=== PATIENT | male | born 1935 | race Caucasian/White ===

== ENCOUNTER 2022-04-03 10:36 | Inpatient (IN) | payer MEDICARE ==
[~2022-04-03] VITALS: Ht 167.6 cm; Wt 63.6 kg
[2022-04-03 11:23] LABS: Basophils # (auto) 0 10 ^3/uL (0-0.2); Basophils % (auto) 0.5 % (0.0-2.0); Eosinophils # (auto) 0.1 10 ^3/uL (0-0.8); Eosinophils % (auto) 1.1 % (0.0-7.0); Hematocrit 36.6 % (41.0-53.0); Hemoglobin 11.9 g/dL (13.5-17.5); Lymphocytes # (auto) 1.4 10 ^3/uL (0.4-5.4); Lymphocytes % (auto) 19.7 % (10.0-50.0); Mean Corpuscular Hgb Conc. 32.5 g/dL (32.0-36.0); Monocytes # (auto) 0.5 10 ^3/uL (0-1.3); Monocytes % (auto) 7.5 % (0.0-12.0); Neutrophils % (auto) 71.2 % (37.0-80.0); Nucleated Red Blood Cells % 0.1 %; Red Blood Cells 4.41 10^6/uL (4.5-5.90); Red Cell Distribution Width 18.3 % (11.8-14.3)
[2022-04-03 11:31] LABS: Urine Bacteria NONE SEEN /hpf (None Seen); Urine Blood Negative /uL (Negative); Urine Hyaline Cast FEW /lpf (0 - 2); Urine Mucus FEW (None Seen); Urine Specific Gravity 1.024 (1.001-1.035); Urine WBC 5 /hpf (0 - 3)
[2022-04-03 11:40] LABS: INR 1.03 (0.9-1.15); Partial Thromboplastin Time 29.3 sec (24.6-33.4)
[2022-04-03 11:41] LABS: Albumin 3.2 g/dL (3.4-5.0); Calcium 8.9 mg/dL (8.5-10.1); Potassium 4.5 mmol/L (3.5-5.1)
[2022-04-03 11:45] LABS: Bilirubin, Total 1.4 mg/dL (0.2-1.0); Total Protein 6.6 g/dL (6.4-8.2)
[2022-04-03] MEDS ORDERED: ACETAMINOPHEN 325 MG TAB PO PRN (15:15)
[2022-04-03] MEDS ORDERED: DOCUSATE SOD 100 MG CAP PO PRN (15:15)
[2022-04-03] MEDS ORDERED: MORPHINE SULFATE INJ 2 MG/ml SYRG IV PRN (15:15)
[2022-04-03] MEDS ORDERED: NITROGLYCERIN 0.4 MG SL TAB SL PRN (15:15)
[2022-04-03] MEDS ORDERED: ONDANSETRON HCL 4 MG/2 ML VIAL IV PRN (15:15)
[2022-04-03] MEDS ORDERED: REMDESIVIR PER PHARMACY 0 ML IV SCH (15:15)
[2022-04-03 15:27] VITALS: BP 116/57
[2022-04-03] MEDS ORDERED: REMDESIVIR 200 MG in NS 210ml LOADING DOSE ADULT IV ONE (15:30)
[2022-04-03] MEDS: MULTIPLE VITAMINS W/ MINERALS TAB PO SCH (15:39)
[2022-04-03] MEDS: DexAMETHasone 4 MG TAB PO SCH (15:40)
[2022-04-03] MEDS: ENOXAPARIN SOD 40 MG/0.4 ML SYRINGE SC SCH (15:40)
[2022-04-03] MEDS: ALBUTEROL SULF HFA 90MCG INH 200DOSE IN SCH (22:00)
[2022-04-03 22:12] VITALS: BP 115/67
[2022-04-03] MEDS: SODIUM CHLOR 0.9% PF (SALINE LOCK) 10ML VIAL/SYR IV SCH (23:01)
[2022-04-03 23:23] VITALS: BP 115/67
[2022-04-04 04:57] VITALS: BP 134/19
[2022-04-04] MEDS: SODIUM CHLOR 0.9% PF (SALINE LOCK) 10ML VIAL/SYR IV SCH ×3 (05:42→22:23)
[2022-04-04] MEDS: ALBUTEROL SULF HFA 90MCG INH 200DOSE IN SCH ×3 (06:00→18:24)
[2022-04-04] MEDS: MULTIPLE VITAMINS W/ MINERALS TAB PO SCH (08:38)
[2022-04-04] MEDS: ENOXAPARIN SOD 40 MG/0.4 ML SYRINGE SC SCH (08:39)
[2022-04-04] MEDS: FAMOTIDINE 20 MG TAB PO SCH (08:39)
[2022-04-04] MEDS: DexAMETHasone 4 MG TAB PO SCH (08:39)
[2022-04-04 09:24] VITALS: BP 105/50
[2022-04-04 13:00] VITALS: BP 110/56
[2022-04-04 13:11] LABS: Albumin 3.2 g/dL (3.4-5.0); Potassium 4.4 mmol/L (3.5-5.1)
[2022-04-04 13:15] LABS: Total Protein 7.2 g/dL (6.4-8.2)
[2022-04-04] MEDS ORDERED: ASCORBIC ACID 500 MG TAB PO ONE (14:15)
[2022-04-04] MEDS ORDERED: AZITHROMYCIN 500MG/ 250ML 250 ML IV ONE (14:15)
[2022-04-04] MEDS ORDERED: CHOLECALCIFEROL (VITD3) 2,000 UNIT CAP/TAB PO ONE (14:15)
[2022-04-04] MEDS ORDERED: cefTRIAXone 1GM/50ML D5W 50 ML IV ONE (14:15)
[2022-04-04] MEDS ORDERED: ZINC SULFATE 220mg CAP or TAB PO ONE (14:15)
[2022-04-04] MEDS: REMDESIVIR 100mg 100 MG in SODIUM CHL 0.9% 230 ML IV SCH (16:03)
[2022-04-04 17:00] VITALS: BP 142/77
[2022-04-04 22:00] VITALS: BP 95/57
[2022-04-04] MEDS: ASCORBIC ACID 500 MG TAB PO SCH (22:23)
[2022-04-05] MEDS ORDERED: SACU1TAB PO (01:58)
[2022-04-05] MEDS ORDERED: NITR0.4S29 SL (01:58)
[2022-04-05] MEDS ORDERED: METO25TA93 PO (01:58)
[2022-04-05] MEDS ORDERED: CANA100T OR (01:58)
[2022-04-05] MEDS ORDERED: BENZ200C64 PO (01:58)
[2022-04-05] MEDS ORDERED: ATOR40TA52 PO (01:58)
[2022-04-05] MEDS ORDERED: MULT-1018 PO (01:58)
[2022-04-05] MEDS ORDERED: ASPI1TAB91 PO (01:58)
[2022-04-05 05:00] VITALS: BP 114/64
[2022-04-05] MEDS: SODIUM CHLOR 0.9% PF (SALINE LOCK) 10ML VIAL/SYR IV SCH ×3 (05:38→22:00)
[2022-04-05 05:48] LABS: Albumin 2.9 g/dL (3.4-5.0); BUN/Creatinine Ratio 26.1; Calcium 9.2 mg/dL (8.5-10.1); Potassium 4.6 mmol/L (3.5-5.1)
[2022-04-05 05:50] LABS: Bilirubin, Total 0.8 mg/dL (0.2-1.0); Total Protein 6.5 g/dL (6.4-8.2)
[2022-04-05] MEDS: ALBUTEROL SULF HFA 90MCG INH 200DOSE IN SCH ×3 (06:35→22:22)
[2022-04-05 08:00] VITALS: BP 108/53
[2022-04-05 09:00] VITALS: BP 108/53
[2022-04-05] MEDS: cefTRIAXone 1GM/50ML D5W 50 ML IV SCH (10:27)
[2022-04-05] MEDS: ZINC SULFATE 220mg CAP or TAB PO SCH (10:28)
[2022-04-05] MEDS: FAMOTIDINE 20 MG TAB PO SCH (10:28)
[2022-04-05] MEDS: ASCORBIC ACID 500 MG TAB PO SCH ×2 (10:28→22:00)
[2022-04-05] MEDS: CHOLECALCIFEROL (VITD3) 2,000 UNIT CAP/TAB PO SCH (10:28)
[2022-04-05] MEDS: ENOXAPARIN SOD 40 MG/0.4 ML SYRINGE SC SCH (10:28)
[2022-04-05] MEDS: MULTIPLE VITAMINS W/ MINERALS TAB PO SCH (10:28)
[2022-04-05] MEDS: DexAMETHasone 4 MG TAB PO SCH (10:28)
[2022-04-05] MEDS ORDERED: PANTOPRAZOLE 40 MG/10 ML VIAL INJ IV ONE (11:45)
[2022-04-05] MEDS: AZITHROMYCIN 500MG/ 250ML 250 ML IV SCH (12:54)
[2022-04-05 13:00] VITALS: BP_SYST 128; BP_SYST 130; BP_DIAS 70; BP_DIAS 90
[2022-04-05] MEDS: FUROSEMIDE 40 MG/4 ML VIAL IV SCH (13:32)
[2022-04-05] MEDS: REMDESIVIR 100mg 100 MG in SODIUM CHL 0.9% 230 ML IV SCH (15:53)
[2022-04-05 16:48] VITALS: BP 117/62
[2022-04-05 22:54] VITALS: BP 108/65
[2022-04-06 04:33] VITALS: BP 110/53
[2022-04-06] MEDS: SODIUM CHLOR 0.9% PF (SALINE LOCK) 10ML VIAL/SYR IV SCH (06:19)
[2022-04-06 06:26] LABS: Potassium 4.2 mmol/L (3.5-5.1)
[2022-04-06 06:42] LABS: BUN/Creatinine Ratio 31.3; Bilirubin, Total 0.9 mg/dL (0.2-1.0); Calcium 8.9 mg/dL (8.5-10.1); Total Protein 6.2 g/dL (6.4-8.2)
[2022-04-06] MEDS: ALBUTEROL SULF HFA 90MCG INH 200DOSE IN SCH ×2 (07:16→14:00)
[2022-04-06 08:00] VITALS: BP 138/79
[2022-04-06 09:00] VITALS: BP 126/63
[2022-04-06] MEDS: MULTIPLE VITAMINS W/ MINERALS TAB PO SCH (09:26)
[2022-04-06] MEDS: DexAMETHasone 4 MG TAB PO SCH (09:26)
[2022-04-06] MEDS: cefTRIAXone 1GM/50ML D5W 50 ML IV SCH (09:26)
[2022-04-06] MEDS: FUROSEMIDE 40 MG/4 ML VIAL IV SCH (09:26)
[2022-04-06] MEDS: ZINC SULFATE 220mg CAP or TAB PO SCH (09:26)
[2022-04-06] MEDS: ASCORBIC ACID 500 MG TAB PO SCH (09:26)
[2022-04-06] MEDS: CHOLECALCIFEROL (VITD3) 2,000 UNIT CAP/TAB PO SCH (09:27)
[2022-04-06] MEDS: ENOXAPARIN SOD 40 MG/0.4 ML SYRINGE SC SCH (09:27)
[2022-04-06] MEDS ORDERED: PANTOPRAZOLE 40 MG/10 ML VIAL INJ IV SCH (10:00)
[2022-04-06] MEDS ORDERED: FURO1TAB33 PO (10:57)
[2022-04-06] MEDS ORDERED: CHOL500035 PO (10:57)
[2022-04-06] MEDS ORDERED: ASCO500C49 PO (10:57)
[2022-04-06] MEDS ORDERED: AZIT500T66 PO (10:57)
[2022-04-06] MEDS ORDERED: POTA10TA51 PO (10:57)
[2022-04-06] MEDS ORDERED: CARV6.25 PO (10:57)
[2022-04-06] MEDS: AZITHROMYCIN 500MG/ 250ML 250 ML IV SCH (11:14)
[2022-04-06 13:01] VITALS: BP 138/79
== END 2022-04-06 13:43 | disposition hospice, home (50) | DRG 177 ==
LOC: ER 10:36 → TELE 15:01 → TELE-EAST 21:25
PROVIDERS: ADMIT Internal Medicine; ATTEND Family Medicine
PROC: XW033E5 Introduction of Remdesivir Anti-infective into Peripheral Vein, Percutaneous Approach, New Technology Group 5 (ICD-10-PCS; principal; 2022-04-03)
DX: U07.1 COVID-19 (principal); J12.82 Pneumonia due to coronavirus disease 2019; J96.01 Acute respiratory failure with hypoxia; I42.9 Cardiomyopathy, unspecified; E55.9 Vitamin D deficiency, unspecified; I50.9 Heart failure, unspecified; E11.22 Type 2 diabetes mellitus with diabetic chronic kidney disease; I48.91 Unspecified atrial fibrillation; H91.90 Unspecified hearing loss, unspecified ear; N18.9 Chronic kidney disease, unspecified; I25.2 Old myocardial infarction; Z95.1 Presence of aortocoronary bypass graft; Z88.6 Allergy status to analgesic agent; Z91.048 Other nonmedicinal substance allergy status; Z88.5 Allergy status to narcotic agent; Z88.2 Allergy status to sulfonamides; Z88.8 Allergy status to other drugs, medicaments and biological substances
CPT/HCPCS: 36415; 71045; 80053; 81001; 82306; 83880; 84484; 85025; 85379; 85610; 85652; 85730; 86141; 87426; 93005; 93306; 94640; 96365; 96366; C9113; G0378; J0696

== ENCOUNTER 2022-05-30 16:11 | Inpatient (IN) | payer MEDICARE, MEDICAID ==
[~2022-05-30] VITALS: Ht 172.7 cm; Wt 62.0 kg
[~2022-05-30 16:11] MED LIST: ASCO500C49 PO; ASPI1TAB91 PO; ATOR40TA52 PO; AZIT500T66 PO; BENZ200C64 PO; CANA100T OR; CARV6.25 PO; CHOL500035 PO; EMPA1TAB PO; FURO1TAB33 PO; MET25T PO; METO25TA93 PO; MULT-1018 PO; NITR0.4S29 SL; POTA-167 PO; POTA10TA51 PO; SACU1TAB PO
[2022-05-30 16:58] LABS: Basophils # (auto) 0 10 ^3/uL (0-0.2); Basophils % (auto) 0.6 % (0.0-2.0); Eosinophils # (auto) 0.1 10 ^3/uL (0-0.8); Eosinophils % (auto) 1.2 % (0.0-7.0); Hematocrit 38.8 % (41.0-53.0); Hemoglobin 12.7 g/dL (13.5-17.5); Lymphocytes # (auto) 1.5 10 ^3/uL (0.4-5.4); Lymphocytes % (auto) 20.1 % (10.0-50.0); Mean Corpuscular Hemoglobin 27.7 pg (28.0-32.0); Mean Corpuscular Hgb Conc. 32.7 g/dL (32.0-36.0); Mean Corpuscular Volume 84.7 fL (80.0-100.0); Monocytes % (auto) 12.5 % (0.0-12.0); Neutrophils % (auto) 65.6 % (37.0-80.0); Nucleated Red Blood Cells % 0.1 %; Red Blood Cells 4.59 10^6/uL (4.5-5.90); Red Cell Distribution Width 18.9 % (11.8-14.3); White Blood Cell 7.6 10^3/uL (4.4-10.8)
[2022-05-30 17:24] LABS: Albumin 3.3 g/dL (3.4-5.0); Calcium 10.2 mg/dL (8.5-10.1); Potassium 4.2 mmol/L (3.5-5.1)
[2022-05-30 17:26] LABS: BUN/Creatinine Ratio 51.2 (10.0-20.0)
[2022-05-30 17:39] LABS: Bilirubin, Total 1.3 mg/dL (0.2-1.0); Total Protein 6.9 g/dL (6.4-8.2)
[2022-05-30] MEDS ORDERED: ONDANSETRON HCL 4 MG/2 ML VIAL IV PRN (21:00)
[2022-05-30] MEDS ORDERED: ALBUTEROL SULF 2.5 MG/0.5ML(0.5%) NEB SOLN NEB PRN (21:00)
[2022-05-30] MEDS ORDERED: DEXTROSE (50%) 50ML SYRG IV PRN (21:00)
[2022-05-30] MEDS ORDERED: NITROGLYCERIN 0.4 MG SL TAB SL PRN (21:00)
[2022-05-30] MEDS ORDERED: MORPHINE SULFATE INJ 2 MG/ml SYRG IV PRN (21:00)
[2022-05-30] MEDS ORDERED: FUROSEMIDE 40 MG/4 ML VIAL IV ONE (21:00)
[2022-05-30 21:20] VITALS: BP 119/69
[2022-05-30] MEDS: ACCU-CHEK COMFORT CURVE STRIP VI SCH (21:24)
[2022-05-30] MEDS: InsuLIN REG 1unit/0.01ml Soln (100units/ml) SC SCH (21:24)
[2022-05-30] MEDS: METOPROLOL TARTRATE 25 MG TAB PO SCH (21:31)
[2022-05-30] MEDS: HEPARIN SODIUM (PORCINE) 5000 UNITS/ML 1ML VIAL SC SCH (21:31)
[2022-05-31 06:07] LABS: Basophils # (auto) 0.1 10 ^3/uL (0-0.2); Basophils % (auto) 0.9 % (0.0-2.0); Eosinophils # (auto) 0.1 10 ^3/uL (0-0.8); Eosinophils % (auto) 1.8 % (0.0-7.0); Hematocrit 36.1 % (41.0-53.0); Hemoglobin 12.7 g/dL (13.5-17.5); Lymphocytes # (auto) 1.6 10 ^3/uL (0.4-5.4); Mean Corpuscular Hemoglobin 29.6 pg (28.0-32.0); Mean Corpuscular Hgb Conc. 35.1 g/dL (32.0-36.0); Mean Corpuscular Volume 84.5 fL (80.0-100.0); Monocytes # (auto) 0.7 10 ^3/uL (0-1.3); Monocytes % (auto) 9.8 % (0.0-12.0); Neutrophils # (auto) 4.4 10 ^3/uL (1.6-8.6); Neutrophils % (auto) 64.5 % (37.0-80.0); Nucleated Red Blood Cells % 0.1 %; Red Blood Cells 4.27 10^6/uL (4.5-5.90); Red Cell Distribution Width 18.6 % (11.8-14.3); White Blood Cell 6.8 10^3/uL (4.4-10.8)
[2022-05-31] MEDS: ACCU-CHEK COMFORT CURVE STRIP VI SCH ×4 (06:22→22:06)
[2022-05-31] MEDS: InsuLIN REG 1unit/0.01ml Soln (100units/ml) SC SCH ×4 (06:22→22:00)
[2022-05-31 06:30] LABS: Albumin 3.1 g/dL (3.4-5.0); BUN/Creatinine Ratio 57.5 (10.0-20.0); Bilirubin, Total 1.3 mg/dL (0.2-1.0); Calcium 9.7 mg/dL (8.5-10.1); Total Protein 6.3 g/dL (6.4-8.2)
[2022-05-31] MEDS: FUROSEMIDE 40 MG/4 ML VIAL IV SCH ×2 (06:46→18:00)
[2022-05-31 10:01] LABS: Urine Bacteria NONE SEEN /hpf (None Seen); Urine Blood Negative /uL (Negative); Urine Hyaline Cast FEW /lpf (0 - 2); Urine Specific Gravity 1.012 (1.001-1.035); Urine WBC <1 /hpf (0 - 3)
[2022-05-31] MEDS: DIGOXIN 0.125 MG TAB PO SCH (10:09)
[2022-05-31] MEDS: METOPROLOL TARTRATE 25 MG TAB PO SCH (10:10)
[2022-05-31] MEDS: HEPARIN SODIUM (PORCINE) 5000 UNITS/ML 1ML VIAL SC SCH ×2 (10:10→22:00)
[2022-05-31] MEDS: PANTOPRAZOLE 40 MG TAB PO SCH (10:10)
[2022-05-31] MEDS: ASPirin 81 mg TAB PO SCH (10:12)
[2022-06-01] MEDS ORDERED: LORazepam 2MG/ML-1ML VIAL IV PRN (02:00)
[2022-06-01 05:00] VITALS: BP 97/52
[2022-06-01] MEDS: FUROSEMIDE 40 MG/4 ML VIAL IV SCH (06:00)
[2022-06-01] MEDS: InsuLIN REG 1unit/0.01ml Soln (100units/ml) SC SCH ×2 (06:02→13:06)
[2022-06-01] MEDS: ACCU-CHEK COMFORT CURVE STRIP VI SCH ×2 (06:03→12:30)
[2022-06-01 08:26] LABS: Basophils # (auto) 0.1 10 ^3/uL (0-0.2); Basophils % (auto) 0.8 % (0.0-2.0); Eosinophils # (auto) 0.1 10 ^3/uL (0-0.8); Eosinophils % (auto) 1.1 % (0.0-7.0); Hematocrit 36.4 % (41.0-53.0); Hemoglobin 12.4 g/dL (13.5-17.5); Lymphocytes # (auto) 1.2 10 ^3/uL (0.4-5.4); Lymphocytes % (auto) 14.2 % (10.0-50.0); Mean Corpuscular Hemoglobin 28.6 pg (28.0-32.0); Monocytes # (auto) 0.8 10 ^3/uL (0-1.3); Monocytes % (auto) 9.8 % (0.0-12.0); Neutrophils # (auto) 6.3 10 ^3/uL (1.6-8.6); Neutrophils % (auto) 74.1 % (37.0-80.0); Nucleated Red Blood Cells % 0.1 %; Red Blood Cells 4.33 10^6/uL (4.5-5.90); Red Cell Distribution Width 18.5 % (11.8-14.3); White Blood Cell 8.5 10^3/uL (4.4-10.8)
[2022-06-01 08:30] VITALS: BP 104/56
[2022-06-01 08:45] LABS: BUN/Creatinine Ratio 46.6 (10.0-20.0); Calcium 9.3 mg/dL (8.5-10.1); Potassium 3.6 mmol/L (3.5-5.1)
[2022-06-01] MEDS: PANTOPRAZOLE 40 MG TAB PO SCH (10:11)
[2022-06-01] MEDS: DIGOXIN 0.125 MG TAB PO SCH (10:11)
[2022-06-01] MEDS: ASPirin 81 mg TAB PO SCH (10:12)
[2022-06-01] MEDS: HEPARIN SODIUM (PORCINE) 5000 UNITS/ML 1ML VIAL SC SCH (10:14)
[2022-06-01 14:24] VITALS: BP 112/64
[2022-06-01 16:54] VITALS: BP 103/57
[2022-06-01 18:20] VITALS: BP 97/52
== END 2022-06-01 19:00 | disposition hospice, home (50) | DRG 189 ==
LOC: ER 16:11 → TELE 20:52 → TELE-EAST 06-01 03:00
PROVIDERS: ADMIT Nurse Practitioner; ATTEND Internal Medicine
DX: J96.20 Acute and chronic respiratory failure, unspecified whether with hypoxia or hypercapnia (principal); I50.23 Acute on chronic systolic (congestive) heart failure; N17.0 Acute kidney failure with tubular necrosis; I42.0 Dilated cardiomyopathy; L03.116 Cellulitis of left lower limb; Z66 Do not resuscitate; I25.10 Atherosclerotic heart disease of native coronary artery without angina pectoris; I48.0 Paroxysmal atrial fibrillation; R62.7 Adult failure to thrive; Z51.5 Encounter for palliative care; Z88.6 Allergy status to analgesic agent; Z91.048 Other nonmedicinal substance allergy status; Z95.1 Presence of aortocoronary bypass graft; Z99.81 Dependence on supplemental oxygen; E11.9 Type 2 diabetes mellitus without complications; Z79.84 Long term (current) use of oral hypoglycemic drugs; Z20.822 Contact with and (suspected) exposure to COVID-19; H91.93 Unspecified hearing loss, bilateral
CPT/HCPCS: 36415; 71045; 80048; 80053; 81001; 82962; 83880; 84484; 85025; 87426; 93005; 94640; 99291; G0378; J1815